=== PATIENT | male | born 1945 | race Caucasian/White ===

== ENCOUNTER → 2016-10-22 | Outpatient (CLI) | payer OTHER ==
[~2016-10-22] MED LIST: ALBU1AER9 INH; ASPI-232 PO; ATOR-26 PO; FERR324T4 PO; IMDSR30 PO; LOSA50TA6 PO; NTRGSL/4 UT; SNG10 PO
--- NOTE | 2016-10-22 10:10 | DIAGNOSTIC IMAGING REPORT ---
(CHEST) THORAX WITHOUT CLINICAL HISTORY: 71 years-old Male presenting with thoracic aortic aneurysm without rupture. TECHNIQUE: Multidetector CT imaging of the chest was performed without the use of intravenous contrast. IV contrast: None. A dose lowering technique was used consistent with the principles of ALARA (as low as reasonably achievable). COMPARISON: None. CT DOSE (mGy.cm): The estimated cumulative dose is 310.94 mGycm. FINDINGS: Box Builder topogram: Unremarkable. On soft tissue windows, normal thyroid and thoracic inlet. No axillary, supraclavicular, hilar, or mediastinal lymphadenopathy. Atherosclerosis of the aortic arch and descending thoracic aorta. The descending thoracic aorta maximally measures 3.1 cm, which is mildly ectatic. There is tortuosity of the descending thoracic aorta immediately superior to the aortic hiatus with aneurysmal dilatation measuring up to 4.2 cm in transverse dimension. No evidence of rupture. Partial visualization of the aorto biiliac stent graft in the infrarenal abdominal aorta. Right renal endograft stent also noted. Normal heart size. Coronary artery calcification. No pericardial or pleural effusion. Renal vascular calcifications noted. On lung windows, mild apical predominant emphysema. Paraseptal emphysema and/or bleb/bulla noted at the paramediastinal right apex. Minimal reticulation and bronchiectasis anteriorly in the upper lobes. Subtle subpleural groundglass opacities along the lingula. Old calcified granuloma noted in the left lower lobe. Airways patent. On bone windows, degenerative changes of the spine. IMPRESSION: 1. Thoracic aortic aneurysm in the distal descending origin measuring 4.2 cm in transverse dimension. No evidence of rupture. Evaluation limited by lack of intravenous contrast. 2. Partial visualization of abdominal aortic aneurysm with aortobiiliac stent graft and right renal stent. 3. Emphysema. 4. Additional changes in the lungs may also represent smoking related lung injury. Electronically signed by: Josh Michaud M.D. 10/22/2016 10:08 AM Dictated Date/Time: 10/22/2016 10:02 AM
== END | disposition home or self-care (01) ==
LOC: C.CTS 09:42
PROVIDERS: ATTEND Surgery Vascular Surgery
DX: I71.2 Thoracic aortic aneurysm, without rupture (principal)

== ENCOUNTER 2019-11-23 05:25 | Inpatient (IN) ==
[2019-11-23] MEDS ORDERED: SODIUM CHLORIDE 0.9% 1000ML 1,000 ML IV SCH (06:00)
[2019-11-23] MEDS ORDERED: CEFAZOLIN 1,000 MG/7.5 ML SYR IV SCH (06:00)
[2019-11-23 06:58] LABS: Creatinine Clr Calc Pharmacy 64.9 ml/min; Est GFR (African American) 100.8; Est GFR (Non-African American) 86.9
--- NOTE | 2019-11-23 07:51 | History & Physical Report ---
Date of Service November 23, 2019 History of Present Illness Chief Complaint: Occlusion left limb of aortic graft Primary Care Provider: Shay Garcia November 19, 2019 Name: JOSH CARDOZA [facility] Number: [id number] : 1945 Date of Service: 11/19/[address] Garcia: We saw Josh Cardoza in the [facility] today for his 1-year followup. He is a 74-year-old male, who had an abdominal aortic aneurysm endograft repair in 2014 with renal artery snorkel. Since that time, he has been doing well overall until approximately 3 weeks ago, at which time he states that he was bowling and the next morning woke up with left hip pain. He denies doing any special maneuvers while bowling. He states that when he woke up that morning, he was in such left lower extremity pain, leg pain, that he fell when he got out of bed. He was having some difficulty ambulating because of pain, especially going up steps. The pain, however, has been gradually improving since that episode. He had attributed this pain to bowling and states that the leg pain that he had, resolved while the hip pain persisted. Additionally, he was having some numbness and tingling in the left leg and thigh since that morning, however, this has improved. He also states that his left leg has been cooler, however, that has also resolved. He did see his PCP the other day for his persistent hip pain and was prescribed Flexeril and Celebrex. He states that these medications have been helping his hip pain as well. Otherwise, now he is ambulating without much difficulty with the exception of the hip pain. He denies any nausea, vomiting, fevers, or chills. He denies any nonhealing wounds on his lower extremities. Prior to the recent episode coincidentally associated with bowling, he had not been having any symptoms and, otherwise, his routine followup would have been uneventful. On physical exam, he is sitting in a chair in no acute distress. Vital signs are heart rate 88, blood pressure 136/66 in the right arm, 124/66 in the left with an oxygen saturation 100% on room air. Head is normocephalic and atraumatic and mucous membranes moist. Extraocular motions are intact. Trachea is midline. Heart is not tachycardic. He has normal respiratory effort. Abdomen is soft, nontender, and nondistended without any palpable masses. He had 2+ femoral, DP, and PT in his right lower extremity. However, his left femoral, popliteal, dorsalis pedis, and posterior tibialis pulses were nonpalpable in the left lower extremity. His right lower extremity was warm and well perfused, and his left was slightly cooler to the touch. He had good sensation and normal sensation in the bilateral lower extremities. Of note, his left foot when he leaned over did become slightly purple at the toes. However, this resolved when he straightened out. There were no wounds on his lower extremities. He was alert and oriented x4 with no focal deficits. His affect was normal. He underwent aortoiliac duplex today, which demonstrated a stable suprarenal abdominal aortic aneurysm measuring 3.8 x 3.9 cm. His grafts were patent without any evidence of endoleak in the abdominal aortic aneurysm with the residual sac measuring 6.6 x 6.8 cm. There was nonocclusive intraluminal thrombus within the main graft body. The left graft limb was acutely thrombosed and occluded. The right graft was patent without evidence of stenosis or thrombosis. The left external iliac artery was occluded with re-perfusion in the common femoral artery via collateral flow with low-velocity monophasic flow in the left common femoral artery. Additionally, the right renal artery snorkel stent was without stenosis, and his bilaterally renal arteries were patent. Josh Cardoza is a 74-year-old male, who presents today for his 1-year followup. However, ultrasound imaging demonstrates acute occlusion of his left graft limb. He is symptomatic from it and at this time given his symptoms and gradual improvement, it seems that his hip pain and leg pain were not from bowling, but rather his occlusion. At this time, given the duration of symptoms, there is no indication for acute intervention nor therapeutic a nticoagulation. He is clearly getting his runoff from collateralization. Given the findings both on imaging and clinical examination, however, we will perform an angiography with possible mechanical thrombectomy versus thrombolytic therapy to occur on November 22. Should we be unable to successfully recanalize his vessel, he may need a bypass. This was discussed with both the patient and his granddaughter, and they were in understanding and agreement. He was also encouraged to call the office should he have any worsening symptoms before the procedure. He was in understanding and agreement. The patient was seen and discussed with Dr. Lauri Farias, who is in agreement. Signature Line Electronic Signature on File CC: Shay Garcia MD [address] [place] [address] [place] [address] * CC: Fidencio Snider, [address] [facility] [address] [place] [address] Sincerely, Deedee Camarillo MD Resident Division of General Surgery Electronically Reviewed/Signed by: Lauri Farias MD Bonderizer Emmanuel Doe [facility] [place] [address] [facility] [address] [place] [address] SRK /CO Result Type: .Outpt Ltr Date of Service: November 19, 2019 00:00 EDT Authorization Status: Prelim/Transcribed Author or Import Date: MD Rabia, Deedee Hanley on November 19, 2019 12:24 EDT Encounter info: [id number], [facility], Clinic, 11/19/2019 - 11/19/2019 Contributor system: [id number] Allergies Allergy/AdvReac Type Severity Reaction Status Date / Time bupropion Allergy Severe NAUSEA Verified 11/23/19 06:02 HEADACHE HOT FLASHES ITCHNESS RED BLOTCHES prednisone Allergy Severe DUE TO Verified 11/23/19 06:02 RETINAL EDEMA varenicline [From Chantix] Allergy Intermediate "shakes" Verified 11/23/19 06:02 Home Medications Home Medications Medication Instructions Recorded Confirmed Type PreserVision AREDS-2 1 tab PO BID 12/25/18 11/23/19 History albuterol sulfate [ProAir HFA] 2 puff INHALATION QID PRN 12/25/18 11/23/19 History amlodipine 5 mg PO HS 12/25/18 11/23/19 History aspirin 81 mg PO HS 12/25/18 11/23/19 History atorvastatin [Lipitor] 80 mg PO QAM 12/25/18 11/23/19 History isosorbide mononitrate 30 mg PO QAM 12/25/18 11/23/19 History montelukast [Singulair] 10 mg PO QAM 12/25/18 11/23/19 History multivitamin 1 tab PO QPM 12/25/18 11/23/19 History nitroglycerin [Nitrostat] 0.4 mg SUBLINGUAL UD PRN 12/25/18 11/23/19 History valsartan [Diovan] 320 mg PO QAM 12/25/18 11/23/19 History camphor 4 %-methyl salicylate 30 1 applic TOPICAL DAILY PRN 11/20/19 11/23/19 History %-menthol 10 % topical cream celecoxib 200 mg capsule 200 mg PO DAILY 11/20/19 11/23/19 History cyclobenzaprine 10 mg tablet 10 mg PO HS 11/20/19 11/23/19 History hydrocortisone acetate 25 mg 25 mg IA BID #24 ea 11/20/19 11/23/19 Rx rectal suppository sennosides 8.6 mg-docusate sodium 1 tab-cap PO .QHS tab 11/20/19 11/23/19 History 50 mg tablet Past Med/Surg History Medical History Aneurysm "one above my heart and two in my lower abdomen" -- dr. farias monitoring - last evaluated approx 1 year ago - [facility] Asthma inhaler prn Deep vein blood clot of left lower extremity Emphysema lung Hyperlipidemia Hypertension Myocardial Infarction x3--1992/2004/2014---follows with Dr. Snider Surgical History History of bilateral cataract extraction History of cardiac cath x3--1992/2004--supposedly 2 stents placed/2014 History of colonoscopy with polypectomy History of heart artery stent ? 2004--was told he had 2 stents placed but upon cardiac cath 2014 @ [facility] they could not find any stents History of prostate biopsy benign History of tonsillectomy and adenoidectomy History of tooth extraction all teeth removed S/P AAA (abdominal aortic aneurysm) repair 2014--@ [facility] Family History Mother Family history of diabetes mellitus Diabetes Sister Family history of diabetes mellitus Diabetes Sister Family history of diabetes mellitus Father Family history of esophageal cancer Other Hypertension No family history of adverse response to anesthesia Social History Smoking Status: Current every day smoker Cigarettes Per Day: 10-12 a day; Second Hand Exposure: No; Hx Alcohol Use: No Hx Substance Use: No Preferred Language: Pashto Communication Ability: Effective Sales Representative Sales Manager Required: No Beliefs That Will Affect Care: None marital status: Current Living Situation: Family Current Living Situation Comment: Lives with daughter and son in law current occupational status: retired Feels Safe at Home: Yes Assistive Devices: Denture - Upper and Denture - Lower Review of Systems All systems reviewed & are unremarkable except as noted in HPI & below Results & Data ([facility]) Vital Signs (Past 12 Hours) Vital Signs Temp Pulse Resp BP Pulse Ox 11/23/19 06:10 36.5 C 66 18 123/69 98
--- NOTE | 2019-11-23 07:51 | History & Physical Bridge Note ---
Date of Service November 23, 2019 History & Physical Bridge Note I have examined the patient, reviewed the History & Physical and in the interval since the performance of the History & Physical I have noted the following changes of clinical significance: no changes noted
--- NOTE | 2019-11-23 07:53 | Pre Anesthesia Assessment ---
Date of Service November 23, 2019 Pre Sedation Assessment Vital Signs Temp Pulse Resp BP Pulse Ox 11/23/19 06:10 36.5 C 66 18 123/69 98 Cardiovascular RRR, no murmur, no edema Respiratory normal respiratory effort, lungs clear to auscultation Pre-Sedation Airway Assessment Smoking Status: Current every day smoker Hx Sleep Apnea: No Short, Thick Neck: No Thyromental Distance: > or= 3.5 Finger Breadths Oral Cavity: + WNL Mallampati Class: II ASA: ASA3 NPO Status Date of Last Intake of Fluids: 11/22/19 Time of Last Intake of Fluids: 23:30 Date of Last Intake of Solid Food: 11/22/19 Time of Last Intake of Solid Foods: 19:00 Procedure Planning Contraindications for Sedation: none Current Medications Reviewed: Yes Notes The planned sedation has been discussed with the patient. Informed Consent was obtained. I have identified the patient, determined the appropriateness of sedation and have assessed the patient immediately prior to the procedure. All medicine(s) and interventions are by my order.
[2019-11-23] MEDS ORDERED: LIDOCAINE HCL 1% 20 ML VIAL ONE (07:57)
[2019-11-23] MEDS ORDERED: MIDAZOLAM HCL 1 MG/ML 2ML VIAL ONE (08:04)
[2019-11-23] MEDS ORDERED: HEPARIN SOD (PORCINE) 1000 UNIT/ML 10 ML VIAL ONE (08:04)
[2019-11-23] MEDS ORDERED: fentaNYL citrate 100 MCG/2 ML VIAL ONE (08:04)
[2019-11-23] MEDS ORDERED: VISIPAQUE IV ONE (09:12)
--- NOTE | 2019-11-23 09:24 | Post Operative Brief Note ---
Immediate Post Op Note v1 Date of Surgery November 23, 2019 Pre & Post Diagnosis Operation Date: 11/23/19 08:00 Pre-Op Diagnosis: Left Limb Aortic Graft Occlusion Post-Op Diagnosis: Left Limb Aortic Graft Occlusion I identified the patient and participated in the time-out.: Yes Procedure Operation Date: 11/23/19 08:00 Actual Procedures p Aortagram and Embolization of Left Limb Graft and Left Common and External Iliac Artery, Moderate Sedation from [id number](Left) - Lauri Farias MD Surgeon Lauri Farias MD Defense Travel Administrator MD Sigrid Estimated Blood Loss 10 Findings Consistent with Post-Op Diagnosis Anesthesia Type RN Sedation Complications none Disposition Accompanied Patient To Recovery: No Disposition: Recovery Room
[2019-11-23] MEDS ORDERED: NITROGLYCERIN SL 0.4 MG/TAB TAB SL PRN (09:34)
[2019-11-23] MEDS ORDERED: ALBUTEROL HFA 8 GM INHALER INH PRN (09:34)
--- NOTE | 2019-11-23 09:48 | Post Anesthesia Assessment ---
Date of Service November 23, 2019 Post Sedation Assessment Vital Signs Temp Pulse Pulse Resp BP Pulse Ox 11/23/19 09:19 66 17 148/71 H 94 11/23/19 09:14 71 17 139/80 98 11/23/19 09:13 69 17 137/70 98 11/23/19 09:08 71 17 139/80 98 11/23/19 09:03 69 17 142/79 H 99 11/23/19 08:58 66 17 133/76 100 11/23/19 08:53 67 15 143/80 H 100 11/23/19 08:48 66 16 152/70 H 100 11/23/19 08:43 70 16 142/72 H 97 11/23/19 08:38 71 16 130/69 96 11/23/19 08:33 67 18 112/62 96 11/23/19 08:28 63 18 119/60 97 11/23/19 08:23 65 18 129/68 98 11/23/19 08:18 66 18 144/66 H 100 11/23/19 08:11 68 18 126/79 100 11/23/19 06:10 36.5 C 66 18 123/69 98 Recovery Score Activity: Moves 4 extremities Respiration: Deep Breath/Cough Circulation: +/-20% PreAnes Value Consciousness: Arouseable (by name) Oxygen Saturation: > 92% On Room Air Post Anesthesia Score: 9 Discharge Sedation Level of Care: Fast Track Phase II Post Sedation Plan On clinical assessment, the patient appears to have tolerated the sedation without complications. Patient is recovering as anticipated. Patient will continue to be monitored by nursing and may be discharged when sedation discharge criteria are met per below protocol. Upon Completions of procedure up to 15 minutes continue every 5 minute vital signs and the P.A.R. score; then discharge to a Phase I or Fast Track to Phase II per the following guidelines: * Discharge Patient to appropriate Phase II area if PAR is 8 or greater or return to pre- procedure baseline. The post - procedure orders will be as directed. * If PAR score is less than 8 or not return to pre-procedure baseline then patient will follow Phase I monitoring till PAR is reached for Phase II. The Phase I may be done in procedure room or may call to secure a Phase I area. * If naloxone or flumazenil are used for reversal, hold in Phase I for continued monitoring from when last reversal dose was given for a minimum of 60 minutes or longer pending the nurse and/or physician discretion of patient condition before discharge to Phase II. Please call the Sedation Physician to re-evaluate and complete post-note for discharge to Phase II area. Do NOT discharge from procedure sedation or Phase 1 until post- sedation evaluation note is complete by procedure /sedation MD Sedation Discharge Instructions to be given to the patient at discharge to home.
--- NOTE | 2019-11-23 09:48 | Operative Report ---
Post Operative Report Pre & Post Diagnosis Operation Date: 11/23/19 08:00 Pre-Op Diagnosis: Left Limb Aortic Graft Occlusion Post-Op Diagnosis: Left Limb Aortic Graft Occlusion Operation Date: 11/24/19 11:00 <No data on this case meets the specified criteria> I identified the patient and participated in the time-out.: Yes Procedure Operation Date: 11/23/19 08:00 Actual Procedures p Aortagram and Embolization of Left Limb Graft and Left Common and External Iliac Artery, ultrasound localization of the left common femoral artery moderate Sedation from (Left) - Lauri Farias MD Operation Date: 11/24/19 11:00 <No data on this case meets the specified criteria> Surgeon Lauri Farias MD Livestock Yard Supervisor MD Sigrid Estimated Blood Loss 10 Findings Consistent with Post-Op Diagnosis Specimens None Anesthesia Type RN Sedation Complications none Disposition Accompanied Patient To Recovery: No Disposition: Recovery Room Indications This is a 74-year-old gentleman who had acute onset of left hip pain proximally 3 weeks prior to this. He subsequently was found to have an occluded left limb of his aorto iliac endograft. Arteriography and possible intervention was recommended. I have discussed the risks options and benefits of the procedure with the patient. The patient understands the risks options and benefits and agrees to the procedure. Description of Procedure The patient was taken the operating placed in supine position. Both groins were then prepped and draped in a sterile manner. Patient was identified and timeout was performed. Local anesthetic was then administered to the left groin. Ultrasound guidance was used to locate the common femoral artery and left side. It was patent with minimal plaque. Percutaneous puncture was then made of the left common femoral artery using ultrasound imaging. A wire followed by a 5 [place] sheath was inserted. We then used an 035 wire with the assistance of a quick cross and Kumpe catheter. Using these 2 catheters we were able to pass the wire up through most of the limb. We then switched to a Jamison wire and a Kumpe catheter. We then were able to advance the Jamison wire further up into the neck of the graft. An aortogram was then performed which showed the right limb to be widely patent. The neck of the graft was patent. There is a good occluded left limb. It appeared that the left limb of the graft had pulled up into the aneurysm sac kinked and then subsequently occluded the limb. We then switched the Jamison wire out to a Lunderquist wire. I would try to pass a pigtail catheter over this but would not make the angles. In view of the total occlusion decided to place Amplatzer plugs in the limb common iliac and external iliac on the left side. We then exchanged the 5 [place] sheath to a 12 [place] sheath. The 12 [place] sheath was advanced up to the proximal portion of the contralateral limb. At that point we deployed a 22 mm Amplatzer plug. Then pulled the 12 [place] sheath down into the distal common iliac and deployed a 20 mm Amplatzer plug. Injection done at that time showed there is still some retrograde flow into the aneurysm sac. The sheath was pulled down into the proximal external iliac and a 12 mm Amplatzer plug was inserted. Angiogram at that point showed total occlusion of the iliac system on the left with no retrograde flow into the sac. There was collateral flow from the right side seen going into the left common femoral artery. That point the sheath was pulled pressure was applied and hemostasis was obtained. Sterile dressings were applied to the wound.The patient left the operation room in satisfactory condition and tolerated the procedure well. All needle and sponge counts were correct at the end of the procedure. I attest to the content of the Intraoperative Record and any orders documented therein. Any exceptions are noted below.
[2019-11-23] MEDS ORDERED: TROLAMINE SALICYLATE 10% CRM 255 APPLN/85 GM TUBE EXT PRN (10:18)
[2019-11-23] MEDS: SODIUM CHLORIDE 0.9% 1000ML 1,000 ML IV SCH ×3 (10:25→17:02)
[2019-11-23 10:28] LABS: Hematocrit (blood only) 33.7 % (42-52); Hemoglobin 10.7 g/dL (14.0-18.0); Mean Corpuscular Hemoglobin 28.4 pg (25-34); Mean Corpuscular Hgb Conc 31.8 g/dL (32-36); Mean Corpuscular Volume 89.4 fL (80-100); Mean Platelet Volume 9.7 fL (7.4-10.4); Platelet Count 280 K/uL (130-400); RDW Coefficient of Variation 16.6 % (11.5-14.5); RDW Standard Deviation 53.4 fL (36.4-46.3); Red Blood Count 3.77 M/uL (4.7-6.1); White Blood Count 10.86 K/uL (4.8-10.8)
[2019-11-23 10:52] LABS: INR 1.1 (0.9-1.1); Partial Thromboplastin Ratio 1.1; Partial Thromboplastin Time 31.3 Seconds (21.0-31.0); Prothrombin Time 11.8 Seconds (9.0-12.0)
[2019-11-23 10:59] LABS: BUN Creatinine Ratio 18.6 (10-20); Creatinine Clr Calc Pharmacy 68.2 ml/min; Est GFR (African American) 102.9; Est GFR (Non-African American) 88.8; Potassium 4.2 mmol/L (3.5-5.1)
[2019-11-23] MEDS: DOCUSATE SODIUM/SENNA 50/8.6MG TAB PO SCH ×2 (12:32→20:56)
--- NOTE | 2019-11-23 16:32 | Anesthesiology Consultation ---
Date of Service November 23, 2019 Covid 19 negative on 11/19/19. Preoperative EKG ordered and pending. Assessment & Plan (1) Encounter for pre-operative examination: Chart Review Chart Review: Acceptable Risk for Surgery and Patient NOT seen in Pre Admission Testing Consults Requested none History Surgery Operation Date: 11/23/19 08:00 Proposed Procedures p Angiogram with Invention, - Lauri Barcenas MD s Possible TPA, Left Limb of Aortic Graft - Lauri Barcenas MD Operation Date: 11/24/19 11:10 Proposed Procedures p Femoral to Femoral Bypass - Lauri Barcenas MD Height/Weight Height: 5 ft 8.5 in Weight: 58.202 kg Allergies Allergy/AdvReac Type Severity Reaction Status Date / Time bupropion Allergy Severe NAUSEA Verified 11/23/19 06:02 HEADACHE HOT FLASHES ITCHNESS RED BLOTCHES prednisone Allergy Severe DUE TO Verified 11/23/19 06:02 RETINAL EDEMA varenicline [From Chantix] Allergy Intermediate "shakes" Verified 11/23/19 06:02 Medications Home Medications Medication Instructions Recorded Confirmed Last Taken PreserVision AREDS-2 1 tab PO BID 12/25/18 11/23/19 11/22/19 19:30 albuterol sulfate [ProAir HFA] 2 puff INHALATION QID PRN 12/25/18 11/23/19 11/01/19 amlodipine 5 mg PO HS 12/25/18 11/23/19 11/22/19 21:00 aspirin 81 mg PO HS 12/25/18 11/23/19 11/22/19 21:30 atorvastatin [Lipitor] 80 mg PO QAM 12/25/18 11/23/19 11/22/19 13:30 isosorbide mononitrate 30 mg PO QAM 12/25/18 11/23/19 11/22/19 19:30 montelukast [Singulair] 10 mg PO QAM 12/25/18 11/23/19 11/22/19 08:00 multivitamin 1 tab PO QPM 12/25/18 11/23/19 11/22/19 17:30 nitroglycerin [Nitrostat] 0.4 mg SUBLINGUAL UD PRN 12/25/18 11/23/19 Unknown valsartan [Diovan] 320 mg PO QAM 10/11/23/19 11/22/19 13:30 camphor 4 %-methyl salicylate 30 1 applic TOPICAL DAILY PRN 11/20/19 11/23/19 11/20/19 %-menthol 10 % topical cream celecoxib 200 mg capsule 200 mg PO DAILY 11/20/19 11/23/19 11/21/19 18:30 cyclobenzaprine 10 mg tablet 10 mg PO HS 11/20/19 11/23/19 11/20/19 23:30 hydrocortisone acetate 25 mg 25 mg PA BID #24 ea 11/20/19 11/23/19 11/22/19 19:30 rectal suppository sennosides 8.6 mg-docusate sodium 1 tab-cap PO .QHS tab 11/20/19 11/23/19 11/22/19 20:30 50 mg tablet Active Medications Generic Name Dose Route Start Last Admin Trade Name Freq PRN Reason Stop Dose Admin Cefazolin Sodium 1,000 mg in 7.5 mls @ 2.5 mls/min 11/23/19 06:00 11/23/19 07:54 Ancef 1000mg IV 11/23/19 18:00 2.5 mls/min PREOP AMRILYNN Administration Sodium Chloride 1,000 mls @ 100 mls/hr 11/23/19 09:45 11/23/19 10:25 Nss 1000ml IV 12/23/19 13:00 100 mls/hr .Q10H MARILYNN Administration Senna/Docusate Sodium 1 tab 11/23/19 09:45 11/23/19 12:32 Docusate Sodium/Senna 50/8.6mg Tab PO 12/23/19 09:44 1 tab HS MARILYNN Administration NPO Date Last Intake of Fluids: 11/22/19 Time Last Intake of Fluids: 23:30 Date Last Intake of Solids: 11/22/19 Time Last Intake of Solids: 19:30 Past Medical History Medical History (Updated 11/23/19 @ 16:33 by Armand Dahl MD) Anemia Aneurysm "one above my heart and two in my lower abdomen" -- dr. barcenas monitoring - last evaluated approx 1 year ago - PSH Asthma inhaler prn Deep vein blood clot of left lower extremity Emphysema lung Hyperlipidemia Hypertension Myocardial Infarction x3--1992/2004/2014---follows with Dr. Snider Past Family History Family History Mother Family history of diabetes mellitus Diabetes Sister Family history of diabetes mellitus Diabetes Sister Family history of diabetes mellitus Father Family history of esophageal cancer Other Hypertension No family history of adverse response to anesthesia Past Surgical History Surgical History History of bilateral cataract extraction History of cardiac cath x3--1992/2004--supposedly 2 stents placed/2014 History of colonoscopy with polypectomy History of heart artery stent ? 2004--was told he had 2 stents placed but upon cardiac cath 2015 @ [facility] [place] they could not find any stents History of prostate biopsy benign History of tonsillectomy and adenoidectomy History of tooth extraction all teeth removed S/P AAA (abdominal aortic aneurysm) repair 2014--@ [facility] [place] Social History Smoking Status: Current every day smoker tobacco type: cigarettes Smoking cigarettes per day: 10 Hx Alcohol Use: No Hx Substance Use: No substance use type: does not use Physical Exam Vital Signs Last Vital Signs Temp 37 C 11/23/19 15:08 Pulse 66 11/23/19 15:22 Resp 20 11/23/19 15:08 BP 126/70 11/23/19 15:08 Pulse Ox 95 11/23/19 15:08 Testing Laboratory Results 11/23/19 10:18 11/23/19 10:18 PT 11.8 Seconds (9.0-12.0) 11/23/19 10:18 INR 1.1 (0.9-1.1) 11/23/19 10:18 APTT 31.3 Seconds (21.0-31.0) H 11/23/19 10:18 Blood Type A Positive 11/23/19 10:18 Antibody Screen NEGATIVE 11/23/19 10:18 Echocardiogram Date: 09/05/17 EF: 55 RWMA: + akinetic (basal mid inferior and inferolateral) Other Findings: + atrial enlargement (mild right atrial dilation) and + diastolic dysfunction (grade 1) Valvular Disease: + no significant valvular disease basal asymmetric hypertrophy of elderly, mild aortic root dilation
[2019-11-23] MEDS: MULTIVITAMIN TAB PO SCH (20:55)
[2019-11-23] MEDS: CEROVITE ADV FORMULA TAB PO SCH (20:55)
[2019-11-23] MEDS: CYCLOBENZAPRINE HCL 10 MG TAB PO SCH (20:56)
[2019-11-23] MEDS: ASPIRIN 81 MG ECTAB PO SCH (20:56)
[2019-11-23] MEDS: AMLODIPINE BESYLATE 5 MG TAB PO SCH (20:56)
[2019-11-23] MEDS: HYDROCORTISONE ACETATE 25 MG SUPP PR SCH (20:57)
[2019-11-24] MEDS ORDERED: CEFAZOLIN 1000MG 1,000 MG/7.5 ML SYR IV SCH (06:00)
[2019-11-24] MEDS ORDERED: LACTATED RINGER'S 1,000 ML IV SCH (06:00)
[2019-11-24] MEDS ORDERED: HYDROCORTISONE SOD 100 MG in SYRINGE 0 ML IV ONE (06:00)
[2019-11-24] MEDS ORDERED: ROCURONIUM BROMIDE 10 MG/ML 5 ML VIAL IV ONE (08:30)
[2019-11-24] MEDS ORDERED: LIDOCAINE HCL 2% 2 ML VIAL/AMP(20MG/ML) INFIL ONE (08:30)
[2019-11-24] MEDS ORDERED: ONDANSETRON INJ 2 MG/ML 2 ML VIAL ONE (08:30)
[2019-11-24] MEDS ORDERED: PROPOFOL IV EMULSION 10 MG/ML 20 ML VIAL IV ONE ×2 (08:30→13:11)
--- NOTE | 2019-11-24 09:13 | History & Physical Bridge Note ---
Date of Service November 24, 2019 History & Physical Bridge Note Patient for a fem fem bypass. I have discussed the risks options and benefits of the procedure with the patient. The patient understands the risks options and benefits and agrees to the procedure. I have examined the patient, reviewed the History & Physical and in the interval since the performance of the History & Physical I have noted the following changes of clinical significance: no changes noted
[2019-11-24] MEDS ORDERED: fentaNYL citrate 100 MCG/2 ML VIAL ONE ×2 (10:35→13:03)
[2019-11-24] MEDS ORDERED: MIDAZOLAM HCL 1 MG/ML 2ML VIAL ONE (10:35)
[2019-11-24] MEDS: ATORVASTATIN 40 MG TAB PO SCH (10:36)
[2019-11-24] MEDS: CeleBREX 200 MG CAP PO SCH (10:36)
[2019-11-24] MEDS: CEROVITE ADV FORMULA TAB PO SCH ×2 (10:36→20:38)
[2019-11-24] MEDS: ISOSORBIDE MONO EXTENDED REL 30 MG TABCR PO SCH (10:36)
[2019-11-24] MEDS: VALSARTAN 80 MG TAB PO SCH (10:36)
[2019-11-24] MEDS ORDERED: HEPARIN (PORCINE) 1000 UNIT/ML 10 ML (CATH LAB USE ONLY) ONE (11:22)
[2019-11-24] MEDS ORDERED: THROMBIN FOR SOLN 20000 UNIT KIT ONE (11:23)
[2019-11-24] MEDS ORDERED: CEFAZOLIN 250 MG/ML 1 GM VIAL ONE (11:23)
[2019-11-24] MEDS ORDERED: LIDOCAINE HCL 1% 20 ML VIAL ONE (11:23)
[2019-11-24] MEDS ORDERED: GELATIN SPONGE SZ 100 ONE (11:23)
[2019-11-24] MEDS ORDERED: EPINEPHrine INJ 1 MG/ML AMP ONE (11:24)
[2019-11-24] MEDS ORDERED: PAPAVERINE HCL INJ 30 MG/ML 2 ML VIAL ONE (11:24)
[2019-11-24] MEDS ORDERED: IODIXANOL (VISIPAQUE) 270 MG/ML 150ML ONE (11:25)
[2019-11-24] MEDS ORDERED: BUPIVACAINE 0.5 % 5 MG/1 ML MPF 30ML VIAL ONE (11:25)
[2019-11-24] MEDS: HYDROCORTISONE ACETATE 25 MG SUPP PR SCH ×2 (11:28→20:37)
[2019-11-24] MEDS ORDERED: HYDROmorphone INJ 2 MG/ML SYR/VIAL IV PRN (11:44)
[2019-11-24] MEDS ORDERED: ATROPINE SULFATE 0.1 MG/ML 10ML SYR IV PRN (11:44)
[2019-11-24] MEDS ORDERED: fentaNYL citrate 100 MCG/2 ML VIAL IV PRN (11:44)
[2019-11-24] MEDS ORDERED: ePHEDrine sulfate 50 MG/ML AMP IV PRN (11:44)
[2019-11-24] MEDS ORDERED: ONDANSETRON INJ 2 MG/ML 2 ML VIAL IV PRN ×2 (11:44→16:15)
[2019-11-24] MEDS ORDERED: PROMETHAZINE HCL 6.25 MG in SODIUM CHLORIDE 0.9% 50 ML IV PRN (11:44)
[2019-11-24] MEDS ORDERED: ePHEDrine sulfate 50 MG/ML SYR ONE (12:21)
[2019-11-24] MEDS ORDERED: HEPARIN SOD (PORCINE) 1000 UNIT/ML 10 ML VIAL ONE ×2 (13:11→14:01)
[2019-11-24] MEDS ORDERED: ePHEDrine sulfate 50 MG/ML AMP ONE (13:35)
[2019-11-24] MEDS ORDERED: GLYCOPYRROLATE 0.2 MG/ML VIAL ONE (13:58)
[2019-11-24] MEDS ORDERED: NEOSTIGMINE METHYLSULFATE 5 MG/5 ML SYR ONE (13:58)
--- NOTE | 2019-11-24 14:01 | Post Operative Brief Note ---
Immediate Post Op Note v1 Date of Surgery November 24, 2019 Pre & Post Diagnosis Operation Date: 11/23/19 08:00 Pre-Op Diagnosis: Left Limb Aortic Graft Occlusion Post-Op Diagnosis: Left Limb Aortic Graft Occlusion Operation Date: 11/24/19 11:10 Pre-Op Diagnosis: Occluded Left Stent of Arteriograft Post-Op Diagnosis: Occluded Left Stent of Arteriograft I identified the patient and participated in the time-out.: Yes Procedure Operation Date: 11/23/19 08:00 Actual Procedures p Aortagram and Embolization of Left Limb Graft and Left Common and External Iliac Artery, Moderate Sedation from [id number](Left) - Lauri Farias MD Operation Date: 11/24/19 11:10 Actual Procedures p Femoral to Femoral Bypass(Bilateral) right to left - Lauri Farias MD Surgeon Lauri Farias MD De Icer Finisher MD Sigrid Estimated Blood Loss 100 Findings Consistent with Post-Op Diagnosis Drains Carson Catheter (16fr catheter inserted by Pawan Kim RN without difficulty. Remains in place throughout case.) Anesthesia Type General Complications none Disposition Accompanied Patient To Recovery: No Disposition: Recovery Room
--- NOTE | 2019-11-24 14:40 | Operative Report ---
Post Operative Report Pre & Post Diagnosis Operation Date: 11/23/19 08:00 Pre-Op Diagnosis: Left Limb Aortic Graft Occlusion Post-Op Diagnosis: Left Limb Aortic Graft Occlusion Operation Date: 11/24/19 11:10 Pre-Op Diagnosis: Occluded Left Stent of Arteriograft Post-Op Diagnosis: Occluded Left Stent of Arteriograft I identified the patient and participated in the time-out.: Yes Procedure Operation Date: 11/23/19 08:00 Actual Procedures p Aortagram and Embolization of Left Limb Graft and Left Common and External Iliac Artery, Moderate Sedation from [id number](Left) - Lauri Farias MD Operation Date: 11/24/19 11:10 Actual Procedures p Femoral to Femoral Bypass(Bilateral) - Lauri Farias MD Surgeon Lauri Farias MD Lime [employer]n And Recausticizing Operator Deedee Camarillo MD Estimated Blood Loss 100 Findings Consistent with Post-Op Diagnosis Specimens None Anesthesia Type General Complications none Disposition Accompanied Patient To Recovery: No Disposition: Recovery Room Indications 74 yoM with occluded left external iliac artery stent with symptoms of hip and left lower extremity claudication. Description of Procedure The patient was placed supine on the operating room table. His bilateral groins and lower abdomen were prepared with chlorhexidine and he was draped in standard sterile fashion. A preprocedure time-out was performed correctly identifying the patient, procedure, and informed consent. Using a #15 blade, a longitudinal incision was made in each groin. Simultaneously, each surgeon dissected the subcutaneous tissue with electrocautery until the inguinal ligament was reached superiorly and just superficial to the femoral sheath. The femoral sheath was entered using Metzenbaum scissors revealing the femoral artery. Each artery was accessed with an 18-gauge needle. Bright red blood returned from each artery, with the right being pulsatile and the left being a dribble. A wire was passed though each, the needle removed, and a 4Fr sheath was advanced into each artery using Seldinger technique. Angiography revealed a patent right external iliac artery stent and a completely occluded left external iliac artery from the amplatzer plugs. A tunnel was created in the subcutaneous tissues from the right groin to the left just superior to the pubis in an upside down U. An 8mm ringed Propaten graft was then passed through this tunnel. 7000 units of intravenous heparin were administered at this point. After clamping the left common femoral SFA, and profunda, the sheath was pulled and the arteriotomy was extended proximally and distally using Woodard scissors. The graft was cut to length and an end-to-side anastomosis was created using 5-0 Goretex suture. Heparin flush was instilled into the graft from the open end on the right and the clamps on the left arterial system were removed to allow backbleeding into the graft. The graft was then clamped on the left. Thrombin-soaked gel foam was placed in the left groin with a dry 4x4 overlying it. Attention was then turned to the right groin. Proximal and distal control was obtained by clamping the common femoral artery, SFA, and profunda. The sheath was pulled and the arteriotomy was extended proximally and distally using Woodard scissors. The graft was prepared by removing excess rings and trimmed to length. An end-to-side anastomosis was created using 5-0 Goretex suture. Prior to completion of the medial portion of the anastomosis, however, endarterectomy of the common femoral and SFA was performed. The free edges of the plaque were tacked down with 7-0 prolene suture. The remainder of the medial side and the lateral side of the anastomosis were completed. The clamp on the graft on the left was removed and allowed to back bleed while heparin was flushed into right- sided anastomosis just prior to the last stitch and the right arterial clamps briefly released for backbleeding. The anastomosis was completed with antegrade flow through all vessels. Thrombin-soaked gel foam was placed in the right groin with a 4x4 overlying it. At this point, there were dopplerable signals through both common and superficial femoral arteries. Both groins were irrigated with saline mixed with Ancef. Hemostasis was achieved in both groins. The femoral sheaths were closed with running 3-0 vicryl suture. The subcutaneous tissue was reapproximated with running 3-0 vicryl suture. Skin gergg were used to reapproximate the skin. A sterile dressing of 4x4s and Medipore tape was applied to each groin. Dopplerable signals were present in the patient's bilateral dorsalis pedis arteries. At the conclusion of the case, all needle, sponge, and instrument counts were correct. The patient tolerated the procedure well and there were no apparent complications. Dr. Farias was present for, directly supervised, and participated in the entirety of the procedure. I attest to the content of the Intraoperative Record and any orders documented therein. Any exceptions are noted below.
--- NOTE | 2019-11-24 15:17 | Anesthesiology Progress Note ---
Date of Service November 24, 2019 Anesthesia Post Procedure Vital Signs Vital Signs: Temp Pulse Pulse Pulse Resp BP BP 11/24/19 15:05 37.2 C 73 20 136/61 11/24/19 14:55 72 17 142/70 H 11/24/19 14:45 72 22 146/65 H 11/24/19 14:38 36.7 C 71 18 138/64 11/24/19 11:23 36.7 C 62 18 138/72 11/24/19 10:58 37.2 C 65 18 143/70 H 11/24/19 07:14 37.1 C 55 L 59 L 18 129/70 11/24/19 03:34 37.1 C 64 18 132/67 11/24/19 01:32 62 11/23/19 23:38 37.2 C 64 18 135/70 11/23/19 19:17 36.9 C 66 20 127/69 11/23/19 15:22 66 Pulse Ox 11/24/19 15:05 100 11/24/19 14:55 100 11/24/19 14:45 98 11/24/19 14:38 95 11/24/19 11:23 98 11/24/19 10:58 96 11/24/19 07:14 93 11/24/19 03:34 94 11/24/19 01:32 11/23/19 23:38 94 11/23/19 19:17 96 11/23/19 15:22 Transfer of Care Handoff Completed per policy Notes Mental Status: alert / awake / arousable Patient Amnestic to Procedure: Yes Nausea / Vomiting: adequately controlled Pain: adequately controlled Airway Patency, RR, SpO2: stable & adequate BP & HR: stable & adequate Hydration State: stable & adequate Anesthetic Complications: no major complications apparent
[2019-11-24] MEDS ORDERED: MoRPHine SULFATE 4 MG/ML 1 ML CARP\\VIAL IV PRN (16:15)
[2019-11-24 16:38] LABS: Basophils # (auto) 0.01 K/uL (0-0.2); Basophils % (auto) 0.1 %; Eosinophils # (auto) 0.03 K/uL (0-0.5); Eosinophils % (auto) 0.3 %; Hematocrit (blood only) 31.9 % (42-52); Hemoglobin 10.3 g/dL (14.0-18.0); Immature Granulocytes # (auto) 0.02 K/uL (0.00-0.02); Immature Granulocytes % (auto) 0.2 %; Lymphocytes # (auto) 1.37 K/uL (1.2-3.4); Lymphocytes % (auto) 11.8 %; Mean Corpuscular Hemoglobin 28.7 pg (25-34); Mean Corpuscular Volume 88.9 fL (80-100); Mean Platelet Volume 9.8 fL (7.4-10.4); Monocytes # (auto) 1.14 K/uL (0.11-0.59); Monocytes % (auto) 9.8 %; Neutrophils # (auto) 9.07 K/uL (1.4-6.5); Neutrophils % (auto) 77.8 %; Platelet Count 224 K/uL (130-400); RDW Coefficient of Variation 16.5 % (11.5-14.5); RDW Standard Deviation 53.6 fL (36.4-46.3); Red Blood Count 3.59 M/uL (4.7-6.1); White Blood Count 11.64 K/uL (4.8-10.8)
[2019-11-24 17:33] LABS: Mean Corpuscular Hgb Conc 32.3 g/dL (32-36)
[2019-11-24] MEDS ORDERED: CEFAZOLIN 1000MG 1,000 MG/7.5 ML SYR IV ONE (20:00)
[2019-11-24] MEDS: ASPIRIN 81 MG ECTAB PO SCH (20:36)
[2019-11-24] MEDS: CYCLOBENZAPRINE HCL 10 MG TAB PO SCH (20:38)
[2019-11-24] MEDS: MULTIVITAMIN TAB PO SCH (20:39)
[2019-11-24] MEDS: AMLODIPINE BESYLATE 5 MG TAB PO SCH (20:39)
[2019-11-24] MEDS: MONTELUKAST SODIUM 10 MG TABLET PO SCH (20:39)
[2019-11-24] MEDS: DOCUSATE SODIUM/SENNA 50/8.6MG TAB PO SCH (20:39)
--- NOTE | 2019-11-24 21:56 | Electrocardiogram Report ---
Test Reason : Blood Pressure : / mmHG Vent. Rate : 064 BPM Atrial Rate : 064 BPM P-R Int : 160 ms QRS Dur : 094 ms QT Int : 404 ms P-R-T Axes : 074 055 058 degrees QTc Int : 416 ms Normal sinus rhythm Possible Left atrial enlargement Borderline ECG When compared with ECG of 06-JUN-2014 06:56, No significant change was found Confirmed by Spencer Figueredo ([id number]) on 11/24/2019 9:56:23 PM Referred By: Lauri Farias Confirmed By:Spencer Figueredo
[2019-11-24] MEDS: SODIUM CHLORIDE 0.9% 1000ML 1,000 ML IV SCH (23:15)
[2019-11-25 07:38] LABS: Basophils # (auto) 0.02 K/uL (0-0.2); Basophils % (auto) 0.2 %; Eosinophils # (auto) 0.08 K/uL (0-0.5); Eosinophils % (auto) 0.8 %; Hematocrit (blood only) 31.6 % (42-52); Hemoglobin 9.9 g/dL (14.0-18.0); Immature Granulocytes # (auto) 0.02 K/uL (0.00-0.02); Immature Granulocytes % (auto) 0.2 %; Lymphocytes % (auto) 13.2 %; Mean Corpuscular Hemoglobin 27.9 pg (25-34); Mean Corpuscular Hgb Conc 31.3 g/dL (32-36); Mean Platelet Volume 10.1 fL (7.4-10.4); Monocytes # (auto) 1.31 K/uL (0.11-0.59); Monocytes % (auto) 13.3 %; Neutrophils # (auto) 7.13 K/uL (1.4-6.5); Neutrophils % (auto) 72.3 %; Platelet Count 239 K/uL (130-400); RDW Coefficient of Variation 16.7 % (11.5-14.5); RDW Standard Deviation 54.4 fL (36.4-46.3); Red Blood Count 3.55 M/uL (4.7-6.1); White Blood Count 9.86 K/uL (4.8-10.8)
[2019-11-25 08:10] LABS: BUN Creatinine Ratio 18.6 (10-20); Calcium 9.1 mg/dl (8.5-10.1); Creatinine Clr Calc Pharmacy 63.3 ml/min; Est GFR (African American) 101.3; Est GFR (Non-African American) 87.4; Potassium 3.9 mmol/L (3.5-5.1)
[2019-11-25] MEDS: ENOXAPARIN INJ 30 MG/0.3 ML SYR SQ SCH ×2 (08:45→20:46)
[2019-11-25] MEDS: CEROVITE ADV FORMULA TAB PO SCH ×2 (08:46→20:48)
[2019-11-25] MEDS: ATORVASTATIN 40 MG TAB PO SCH (08:46)
[2019-11-25] MEDS: ISOSORBIDE MONO EXTENDED REL 30 MG TABCR PO SCH (08:46)
[2019-11-25] MEDS: VALSARTAN 80 MG TAB PO SCH (08:46)
[2019-11-25] MEDS: CeleBREX 200 MG CAP PO SCH (08:46)
[2019-11-25] MEDS: HYDROCORTISONE ACETATE 25 MG SUPP PR SCH ×2 (08:48→20:46)
--- NOTE | 2019-11-25 13:03 | Surgery Progress Note ---
Date of Service November 25, 2019 Assessment & Plan (1) S/P femoral-femoral bypass surgery: POD #1, pt doing very well. incisions dry, distal pulses palpable, sx resolved (2) Ischemic leg: now s/p R to L fem fem BPG. see above Admission and Anticipated Discharge Date Admission Date: November 23, 2019 Subjective 74 yo m POD #1 after R to L fem-fem prosthetic BPG, seen in f/u today. Pt states pain in incisions, especially with movement/walking. Denies pain in feet/toes. States previous numbness and coolness of feet he had preop is now resolved. No new complaints. Review of Systems Review of Systems: All systems reviewed & are unremarkable except as noted in HPI & below Physical Exam Constitutional: WD/WN, vitals as above healthy appearing; no acute distress Respiratory: normal respiratory effort Auscultation: lungs clear to auscultation bilaterally and + diminished lung sounds Cardiovascular: RRR, no murmur, no edema Vessels: femoral pulses present, posterior tibial pulses present (+2 RLE, +2 LLE), dorsalis pedis pulses present (+2 RLE, dopplerable LLE) and radial pulses present; + abnormal peripheral pulses Extremities: normal capillary refill; no edema Gastrointestinal (Abdomen): normal bowel sounds, soft, nontender, no hepatosplenomegaly Musculoskeletal: no cyanosis or clubbing, extremities motor strength 5/5 Skin: + incision (BL groin C/D/I gregg. soft, mild tender) Neurologic: moves all extremities; no focal motor deficits and not confused Psychiatric: A+Ox3, euthymic affect Results & Data ([facility]) Vital Signs (Past 12 Hours) Vital Signs Temp Pulse Resp BP Pulse Ox 11/25/19 11:30 36.7 C 67 18 98/60 L 96 11/25/19 07:50 37.4 C 72 18 104/50 L 93 11/25/19 03:36 37.2 C 72 18 120/59 L 99
[2019-11-25] MEDS: OXYCODONE/ACETAMINOPHEN 5mg/325mg TAB PO PRN (17:37)
[2019-11-25] MEDS: ASPIRIN 81 MG ECTAB PO SCH (20:47)
[2019-11-25] MEDS: MULTIVITAMIN TAB PO SCH (20:47)
[2019-11-25] MEDS: AMLODIPINE BESYLATE 5 MG TAB PO SCH (20:50)
[2019-11-25] MEDS: CYCLOBENZAPRINE HCL 10 MG TAB PO SCH (20:50)
[2019-11-25] MEDS: MONTELUKAST SODIUM 10 MG TABLET PO SCH (20:51)
[2019-11-25] MEDS: DOCUSATE SODIUM/SENNA 50/8.6MG TAB PO SCH (20:55)
[2019-11-26] MEDS: VALSARTAN 80 MG TAB PO SCH (08:22)
[2019-11-26] MEDS: CeleBREX 200 MG CAP PO SCH (08:23)
[2019-11-26] MEDS: ISOSORBIDE MONO EXTENDED REL 30 MG TABCR PO SCH (08:23)
[2019-11-26] MEDS: ENOXAPARIN INJ 30 MG/0.3 ML SYR SQ SCH (08:23)
[2019-11-26] MEDS: ATORVASTATIN 40 MG TAB PO SCH (08:23)
[2019-11-26] MEDS: HYDROCORTISONE ACETATE 25 MG SUPP PR SCH (08:23)
[2019-11-26] MEDS: CEROVITE ADV FORMULA TAB PO SCH (08:23)
[2019-11-26] MEDS: OXYCODONE/ACETAMINOPHEN 5mg/325mg TAB PO PRN (12:02)
--- NOTE | 2019-11-26 13:42 | Surgery Progress Note ---
Date of Service November 26, 2019 Assessment & Plan (1) S/P femoral-femoral bypass surgery: POD #1, pt doing very well. We will discharge him to self-care at home today. We will see him again in the office in 2 weeks for follow-up. Admission and Anticipated Discharge Date Admission Date: November 23, 2019 Subjective 74 yo m POD 2.He has no new complaints.His incisions are causing mild pain. He has no left foot pain. He claims his left foot is much improved from preop. Physical Exam Constitutional: He has palpable pulses in the left foot. He has normal capillary refill in left foot. Both groin incisions are dry and clean. Results & Data ([facility]) Vital Signs (Past 12 Hours) Vital Signs Temp Pulse Pulse Resp BP Pulse Ox 11/26/19 10:55 36.5 C 60 16 97/59 L 97 11/26/19 08:00 66 11/26/19 07:25 36.6 C 65 16 131/74 94 11/26/19 04:29 36.6 C 60 18 94/53 L 95
--- NOTE | 2019-11-27 08:48 | Discharge Summary ---
Date of Service November 27, 2019 Admission HPI Per Admitting Provider November 19, 2019 Name: JOSH CARDOZA [facility] [place] Number: [id number] : 1945 Date of Service: 11/19/[address] Garcia: We saw Josh Cardoza in the [facility] today for his 1-year followup. He is a 74-year-old male, who had an abdominal aortic aneurysm endograft repair in 2014 with renal artery snorkel. Since that time, he has been doing well overall until approximately 3 weeks ago, at which time he states that he was bowling and the next morning woke up with left hip pain. He denies doing any special maneuvers while bowling. He states that when he woke up that morning, he was in such left lower extremity pain, leg pain, that he fell when he got out of bed. He was having some difficulty ambulating because of pain, especially going up steps. The pain, however, has been gradually improving since that episode. He had attributed this pain to bowling and states that the leg pain that he had, resolved while the hip pain persisted. Additionally, he was having some numbness and tingling in the left leg and thigh since that morning, however, this has improved. He also states that his left leg has been cooler, however, that has also resolved. He did see his PCP the other day for his persistent hip pain and was prescribed Flexeril and Celebrex. He states that these medications have been helping his hip pain as well. Otherwise, now he is ambulating without much difficulty with the exception of the hip pain. He denies any nausea, vomiting, fevers, or chills. He denies any nonhealing wounds on his lower extremities. Prior to the recent episode coincidentally associated with bowling, he had not been having any symptoms and, otherwise, his routine followup would have been uneventful. On physical exam, he is sitting in a chair in no acute distress. Vital signs are heart rate 88, blood pressure 136/66 in the right arm, 124/66 in the left with an oxygen saturation 100% on room air. Head is normocephalic and atraumatic and mucous membranes moist. Extraocular motions are intact. Trachea is midline. Heart is not tachycardic. He has normal respiratory effort. Abdomen is soft, nontender, and nondistended without any palpable masses. He had 2+ femoral, DP, and PT in his right lower extremity. However, his left femoral, popliteal, dorsalis pedis, and posterior tibialis pulses were nonpalpable in the left lower extremity. His right lower extremity was warm and well perfused, and his left was slightly cooler to the touch. He had good sensation and normal sensation in the bilateral lower extremities. Of note, his left foot when he leaned over did become slightly purple at the toes. However, this resolved when he straightened out. There were no wounds on his lower extremities. He was alert and oriented x4 with no focal deficits. His affect was normal. He underwent aortoiliac duplex today, which demonstrated a stable suprarenal abdominal aortic aneurysm measuring 3.8 x 3.9 cm. His grafts were patent without any evidence of endoleak in the abdominal aortic aneurysm with the residual sac measuring 6.6 x 6.8 cm. There was nonocclusive intraluminal thrombus within the main graft body. The left graft limb was acutely thrombosed and occluded. The right graft was patent without evidence of stenosis or thrombosis. The left external iliac artery was occluded with re-perfusion in the common femoral artery via collateral flow with low-velocity monophasic flow in the left common femoral artery. Additionally, the right renal artery snorkel stent was without stenosis, and his bilaterally renal arteries were patent. Josh Cardoza is a 74-year-old male, who presents today for his 1-year followup. However, ultrasound imaging demonstrates acute occlusion of his left graft limb. He is symptomatic from it and at this time given his symptoms and gradual improvement, it seems that his hip pain and leg pain were not from bowling, but rather his occlusion. At this time, given the duration of symptoms, there is no indication for acute intervention nor therapeutic anticoagulation. He is clearly getting his runoff from collateralization. Given the findings both on imaging and clinical examination, however, we will perform an angiography with possible mechanical thrombectomy versus thrombolytic therapy to occur on November 22. Should we be unable to successfully recanalize his vessel, he may need a bypass. This was discussed with both the patient and his granddaughter, and they were in understanding and agreement. He was also encouraged to call the office should he have any worsening symptoms before the procedure. He was in understanding and agreement. The patient was seen and discussed with Dr. Lauri Farias, who is in agreement. Signature Line Electronic Signature on File CC: Shay Garcia MD [address] [place] [address] [place] [address] * CC: Fidencio Snider, [address] [facility] [address] [place] [address] Sincerely, Deedee Camarillo MD Resident Division of General Surgery Electronically Reviewed/Signed by: Lauri Farias MD Sign Painter [facility] [place] [address] [facility], [address] [place] [address] SRK /CO Result Type: .Outpt Ltr Date of Service: November 19, 2019 00:00 EDT Authorization Status: Prelim/Transcribed Author or Import Date: MD Rabia, Deedee Hanley on November 19, 2019 12:24 EDT Encounter info: [id number], [facility] [place] SC07, Clinic, 11/19/2019 - 11/19/2019 Contributor system: [id number] Admission Exam Per Admitting Provider On physical exam, he is sitting in a chair in no acute distress. Vital signs are heart rate 88, blood pressure 136/66 in the right arm, 124/66 in the left with an oxygen saturation 100% on room air. Head is normocephalic and atraumatic and mucous membranes moist. Extraocular motions are intact. Trachea is midline. Heart is not tachycardic. He has normal respiratory effort. Abdomen is soft, nontender, and nondistended without any palpable masses. He had 2+ femoral, DP, and PT in his right lower extremity. However, his left femoral, popliteal, dorsalis pedis, and posterior tibialis pulses were nonpalpable in the left lower extremity. His right lower extremity was warm and well perfused, and his left was slightly cooler to the touch. He had good sensation and normal sensation in the bilateral lower extremities. Of note, his left foot when he leaned over did become slightly purple at the toes. However, this resolved when he straightened out. There were no wounds on his lower extremities. He was alert and oriented x4 with no focal deficits. His affect was normal. Principal Diagnosis 1. s/p Right to Left femoral-femoral bypass 2. s/p LLE angiogram without intervention 3. Acute occlusion of L limb of EVAR Discharge Exam Constitutional WD/WN, vitals as above healthy appearing; no acute distress Respiratory normal respiratory effort Auscultation: lungs clear to auscultation bilaterally and + diminished lung sounds Cardiovascular RRR, no murmur, no edema Vessels: femoral pulses present, posterior tibial pulses present (+2 RLE, +2 LLE), dorsalis pedis pulses present (+2 RLE, dopplerable LLE) and radial pulses present; + abnormal peripheral pulses Extremities: normal capillary refill; no edema Gastrointestinal (Abdomen) normal bowel sounds, soft, nontender, no hepatosplenomegaly Musculoskeletal no cyanosis or clubbing, extremities motor strength 5/5 Skin + incision (BL groin C/D/I gregg. soft, mild tender) Neurologic moves all extremities; no focal motor deficits and not confused Psychiatric A+Ox3, euthymic affect Discharge Data Allergies Allergy/AdvReac Type Severity Reaction Status Date / Time bupropion Allergy Severe NAUSEA Verified 11/23/19 06:02 HEADACHE HOT FLASHES ITCHNESS RED BLOTCHES prednisone Allergy Severe DUE TO Verified 11/23/19 06:02 RETINAL EDEMA varenicline [From Chantix] Allergy Intermediate "shakes" Verified 11/23/19 06:02 Consultations 11/25/19 08:00 Consult Case Management - Discharge Planning Routine Procedures Performed Operation Date: 11/23/19 08:00 Actual Procedures p Aortagram and Embolization of Left Limb Graft and Left Common and External Iliac Artery, Moderate Sedation from [id number](Left) - Lauri Farias MD Operation Date: 11/24/19 11:10 Actual Procedures p Femoral to Femoral Bypass(Bilateral) - Lauri Farias MD Ordered Studies 11/23/19 07:05 EV Angio Abdomen Aorta Routine 11/23/19 07:07 US EV guide vascular access Routine 11/24/19 09:57 EV angio LE BI Routine Hospital Course (1) S/P femoral-femoral bypass surgery: POD #2. pt doing very well. We will discharge him to self-care at home today. We will see him again in the office in 2 weeks for follow-up. Total Time Total Time Spent Total Time Spent (In Minutes): 0 Discharge Plan Discharge Items Patient Disposition: Home - Self-Care Reason For Visit: Occluded Left Stent of Arteriograft Discharge Diagnosis: Ischemic left lower extremity. Activity: Per Instructions section Lifting: Gradually increase as tolerated Bathing: Keep incision dry Bathing Comment: May shower starting tomorrow. Dry wound completely after shower. Exercise/Sports: Gradually increase as tolerated Non-emergency contact: Surgeon Call non-emergency contact if: your temperature is above 101.5, your wound has increased redness, your wound has increased drainage and your wound pain has increased Follow-up/Referrals: Shay Garcia MD [Primary Care Provider] - 11/30/19 1:30 pm Diet: Heart Healthy Addtl Attending Provider Instructions: ACTIVITY RECOMMENDATIONS: Replace dressing to groins as needed. SPECIAL CARE INSTRUCTIONS: Call your doctor if: * Temperature above 101 degrees * Pain not relieved by pain medicine ordered * There is increased drainage or redness from any incision * You have any unanswered questions or concerns. Pending Studies at Discharge: No Stand-Alone Forms: My [facility] [employer], Smoking Cessation Medications and DC Order Prescriptions: New oxycodone-acetaminophen [Percocet] 5-325 mg tablet 1 tab PO Q6H PRN (Reason: pain) Qty: 30 RF: 0 Continued Bengay Ultra Strength 4-30-10 % cream 1 applic topical DAILY PRN (Reason: pain on left leg) RF: 0 celecoxib 200 mg capsule 200 mg PO DAILY RF: 0 cyclobenzaprine 10 mg tablet 10 mg PO HS RF: 0 sennosides-docusate sodium [Senna-S] 8.6-50 mg tablet 1 tab-cap PO .QHS RF: 0 hydrocortisone acetate [Anusol-HC] 25 mg suppository 25 mg TN BID Qty: 24 RF: 1 multivitamin Tablet 1 tab PO QPM RF: 0 atorvastatin [Lipitor] 80 mg Tablet 80 mg PO QAM RF: 0 isosorbide mononitrate 30 mg Tablet Extended Release 24 Hr 30 mg PO QAM RF: 0 amlodipine 5 mg Tablet 5 mg PO HS RF: 0 aspirin 81 mg Tablet,Delayed Release (Dr/Ec) 81 mg PO HS RF: 0 valsartan [Diovan] 320 mg Tablet 320 mg PO QAM RF: 0 nitroglycerin [Nitrostat] 0.4 mg Tablet, Sublingual 0.4 mg sublingual UD PRN (Reason: Angina) RF: 0 montelukast [Singulair] 10 mg Tablet 10 mg PO QAM RF: 0 albuterol sulfate [ProAir HFA] 90 mcg/actuation Hfa Aerosol Inhaler 2 puff INHALATION QID PRN (Reason: Shortness Of Breath) RF: 0 PreserVision AREDS-2 [id number] Capsule 1 tab PO BID RF: 0 Discharge Orders: Discharge Order (Routine); Ordered 11/26/19 Ordered By: Lauri Farias Admission Data Admit Date/Time: 11/23/19 09:26 Attending Provider: Lauri Farias Admit Provider: Lauri Farias Primary Care Provider: Shay Garcia Other Interventions: Discharge Summary Assessment (RN) Last Done: 11/26/19 14:13
== END 2019-11-26 14:31 | disposition home or self-care (01) | DRG 271 ==
LOC: ASU 05:25 → 2N 09:26 → 2S 11-24 16:14